=== PATIENT | male | born 1995 | race Caucasian/White ===

== ENCOUNTER → 2024-08-31 13:33 | Outpatient (REF) | payer BC, SELFPAY | LOC: MRI 3T 13:33 | PROVIDERS: ATTENDING PHYSICIAN Orthopaedic Surgery Hand Surgery; FAMILY PHYSICIAN Nurse Practitioner Family | DX: M25.511 Pain in right shoulder (principal) | CPT/HCPCS: 23350; 73040; 73222 ==